=== PATIENT | male | born 1955 | race Caucasian/White ===

== ENCOUNTER 2018-06-15 17:54 | Emergency (ER) | payer BC ==
[~2018-06-15] VITALS: Ht 170.2 cm; Wt 78.2 kg
[2018-06-15 18:11] VITALS: TEMP 98.4
[2018-06-15] MEDS ORDERED: NEXIUM 20MG20 MG PO (18:21)
[2018-06-15] MEDS ORDERED: PRESERVISION1 SGL PO ×2 (18:22→18:23)
[2018-06-15] MEDS ORDERED: CRESTOR40 MG PO (18:22)
[2018-06-15] MEDS ORDERED: JANUMET 1000 MG1 TA1 PO (18:22)
[2018-06-15] MEDS ORDERED: CANA100T PO (18:23)
[2018-06-15] MEDS ORDERED: TENORMIN 2525 MG/TAB PO (18:24)
[2018-06-15] MEDS ORDERED: ASPIRIN 81M81 MG/TA2 PO (18:24)
[2018-06-15] MEDS ORDERED: PRINIVIL2.5 MG PO (18:25)
[2018-06-15] MEDS ORDERED: EPA FISH OIL1 SGL PO (18:25)
[2018-06-15] MEDS ORDERED: ZETIA 10MG TAB10 MG PO (18:25)
[2018-06-15] MEDS ORDERED: MASON NATURAL2000 IU PO (18:25)
[2018-06-15 19:35] VITALS: BP 146/91; PULSE 114
== END 2018-06-15 19:38 | disposition home or self-care (01) ==
LOC: COL.ER 17:54
DX: S01.01XA Laceration without foreign body of scalp, initial encounter (principal); E11.9 Type 2 diabetes mellitus without complications; I10 Essential (primary) hypertension; E78.5 Hyperlipidemia, unspecified; Z79.84 Long term (current) use of oral hypoglycemic drugs; Z79.82 Long term (current) use of aspirin; W22.8XXA Striking against or struck by other objects, initial encounter; Y92.830 Public park as the place of occurrence of the external cause